=== PATIENT | female | born 1980 | race Caucasian/White ===

== ENCOUNTER 2017-04-06 07:24 | Day surgery (SDC) | payer OTHER ==
[~2017-04-06] VITALS: Ht 157.5 cm; Wt 118.7 kg
[~2017-04-06 07:24] MED LIST: ALBU18HF INH; BUPR150T8 PO; CHOL500050 PO; CeFAZolin Inj 2 GM in IV Premix 1 EACH IV ONE; FLUT10.62 IH; FLUT16SP NS; HYDR-4003 PO; INDO25CA PO; Lactated Ringer's 1,000 ML IV SCH; MULT-1018 PO; NAPR375T4 PO
[2017-04-06] MEDS ORDERED: Ketamine 10 mg/mL 20 mL Inj ONE (07:25)
[2017-04-06] MEDS ORDERED: Propofol 10,000 mCg/mL 20 mL Inj ONE (07:25)
[2017-04-06] MEDS ORDERED: OMEP20CA11 PO (07:56)
[2017-04-06 08:02] VITALS: BP 119/76; PULSE 67; RESP 16; O2SAT 97
--- NOTE | 2017-04-06 08:03 | PCM.HPANE ---
Patient Data Surgeon Admitting Provider: Attending Provider:Jadyn Lee DPM Primary Care Physician:Rosy Sargent PA-C Other Provider:Leelee Lugoingham Anesthesia Reason for Visit Lipoma Of Left Foot, Left Foot Pain Ht/WT & BMI Height (Feet): 5 Height (Inches): 2 Weight (Kilograms): 119.20 Body Mass Index 48.00 Allergies Coded Allergies: latex (Verified Allergy, Severe, ITCHING, 03/27/14) TAPE (Verified Allergy, Intermediate, 04/06/17) iodine (Verified Allergy, Unknown, UNKNOWN (INJECTABLE), 03/27/14) meperidine (Verified Allergy, Unknown, UNKNOWN, 03/27/14) Past Anesthesia History Anesthesia History: Positive for:: Anesthesia Reactions (REACTION TO DEMEROL; pt doesn't remember), Denies:: Malignant Hyperthermia Diabetes History Hx Diabetes?: No MRSA MRSA: No Medications Reported Medications Omeprazole 20 Mg Capsule.dr20 Mg PO DAILY Ref 0 04/06/17 Bupropion ER (Wellbutrin SR)150 Mg Tablet.er150 Mg PO BID Ref 0 04/05/17 Cholecalciferol (Vitamin D3) (Vitamin D3)50,000 Unit Washgpo10,000 Unit PO DAILY 04/05/17 Albuterol Sulfate (Ventolin HFA Inhaler)200 Puff/18 Gm Inhaler2 Puff INH Q4 PRN For Wheezing #1 INHALER Ref 0 04/05/17 Naproxen 375 Mg Tablet.dr375 Mg PO BID PRN For Pain Ref 0 04/05/17 Multivitamin (Multi Vitamin Daily)1 Each Tablet1 Each PO DAILY 30 Days Ref 0 04/05/17 Indomethacin 25 Mg Hzfkulr30 Mg PO TID Ref 0 04/05/17 Hydrocodone-Acetaminophen 5-325 mg 1 Each Tablet1 Tablet PO Q4H PRN For Pain Ref 0 04/05/17 Fluticasone Propionate (Fluticasone Propionate Nasal)16 Gm [place].susp2 [place] NS BID #16 GM Ref 0 04/05/17 Fluticasone Propionate (Flovent HFA 44 mcg)10.6 Gm Aer.w.adap1 Puff IH BID # 10.6 GM Ref 0 04/05/17 Discontinued Reported Medications Bupropion ER (Wellbutrin SR)150 Mg Tablet.er450 Mg PO DAILY 30 Days Ref 0 03/27/14 Omeprazole 40 Mg Capsule.dr40 Mg PO DAILY 30 Days Ref 0 03/27/14 Naproxen 375 Mg Ewagvh447 Mg PO BID PRN For Pain Ref 0 03/27/14 Multivitamin (Daily Multiple Vitamin)1 Each Tablet1 Each PO DAILY 03/27/14 Albuterol Sulfate (Ventolin HFA Inhaler)200 Puff/18 Gm Inhaler1-2 Puff INH Q 4- 6HRS PRN PRN For Wheezing #1 INHALER Ref 0 03/27/14 Fluticasone Propionate (Flovent HFA 110 mcg)12 Gm Aer.w.adap2 Puffs IH BID #12 GM Ref 0 03/27/14 Fluticasone Propionate (Flonase Nasal)16 Gm [place].susp1 [place] NS BID #16 GM Ref 0 03/27/14 Fluconazole (Diflucan)150 Mg Biprmo729 Mg PO ONCE #1 TABLET Ref 0 03/27/14 Cholecalciferol (Vitamin D3) (Vitamin D3)50,000 Unit Fchvqly11,000 Unit PO WKLY 03/27/14 Cholecalciferol (Vitamin D3) (Vitamin D3)2,000 Unit Tablet2,000 Unit PO DAILY 03/27/14 History History of ENT Problems?: Yes HEENT History: Positive for:: Sinus Problem (ENVIRONMENTAL ALLERGIES) Denture Type: None Teeth Condition: Within Normal Limits Hx of Heart Problems?: No Cardiovascular History: Denies:: Cardiac Surgery Chest Pain Congestive Heart Failure Edema Heart Murmur Hypertension Irregular Heartbeat Pacemaker Thrombophlebitis Hx of Respiratory Problem?: Yes Respiratory History: Positive for:: Asthma (well controlled) COPD (RECENT COLD/SORE THROAT) Pneumonia Use of C-PAP Machine Use of Inhalers / NEBS Denies:: Chest Surgery Dyspnea Emphysema Hemoptysis Tuberculosis Hx Neurologic Problems?: Yes Neurological History: Positive for:: Headaches Hx of GI Problems?: Yes Hx of Problems?: No Female Hx: Denies:: Currently Problems with Breasts? Skin History: Positive for:: History Skin Disorders? (S/P EXC LESION UNDERARM HX ECZEMA) Denies:: Pressure Ulcers Hx Musculoskeletal Problems?: Yes Musculoskeletal History: Positive for:: Back Injury (C/OF NECK & BACK PAIN) Musculoskeletal Trauma (left foot lipoma, plantar fascitis ) Denies:: Joint Replacement Hx of Psycho/Social Problems?: Yes Psycho Social History: Positive for:: Anxiety Hx Depression Denies:: Bipolar Disorder Hx Surgeries?: Yes (C/S X2,BROWN,EXC UNDERARM LESION) Hx Any Other Health Problems?: Yes Other History: Positive for:: Hospitalization Denies:: Cancer Endocrine Disease Thyroid Disease History Blood Transfusions: Denies:: Blood Transfusions (speak to pt if blood needed to see if pt will accept) Hx Diabetes: No Hx Alcohol Use: YesAlcoholic Drinks Per Day: socialHx Substance Use: No Smoking Status: Former Smoker Have You Smoked inLast 12 mo: No Stop/Bang P-Blood Pressure: treated: No B- Body Mass Index > 35 kg/m2: Yes A- Age over 50: No N- Neck Large Circumference: Yes G- Gender Male: No SUSHILA Risk Assessment: Low Risk, <3 Yes Risk Assessment Category Category 1A: Patient has history of documented sleep apnea, and HAS NOT received any narcotic, sedative or anesthesia administration during this stay. Category 1B: Patient has history of documented sleep apnea, and HAS received any narcotic , sedative or anesthesia administration during this stay Category 2: Patient has SUSPECTED Obstructive Sleep Apnea, and HAS received any narcotic , sedative or anesthesia administration during this stay. Category 3: Patient has SUSPECTED Obstructive Sleep Apnea and HAS NOT received narcotic, sedative or anesthesia administration during this stay. Category 4: Outpatient in Procedural Areas with known sleep apnea or who screen positive for High Risk via the STOP/BANG questionnaire. Exam Exam General Appearance: Alert HEENT/AIRWAY: MP 2 Lungs: Clear to Auscultation Heart: Exam Unremarkable Plan Impression Patient chart reviewed, patient interviewed and anesthestic plan with risks, benefits, and alternatives discussed, and informed consent obtained. ASA Physical Status: ASA2 Mod Systemic Disease Anesthetic Plan: MAC Bene/Risks/Altern/Consents: Yes HP Complete Prior to Induction: Yes Rubio Barrera MD Apr 06, 2017 08:03
[2017-04-06] MEDS ORDERED: Lidocaine 1%/Epi 1:100,000 30 mL MDV INFILTRATE ONE (09:58)
[2017-04-06] MEDS ORDERED: Dexamethasone 4 mg/mL Inj IV ONE (10:18)
[2017-04-06] MEDS ORDERED: Lactated Ringer's 500 ML IV PRN (10:27)
[2017-04-06] MEDS ORDERED: Lactated Ringer's 1,000 ML IV SCH (10:27)
[2017-04-06] MEDS ORDERED: EPHEDrine Sulfate 50 mg/mL Inj IVPUSH PRN (10:30)
[2017-04-06] MEDS ORDERED: Ondansetron 2 mg/mL 2 mL Inj IVPUSH PRN (10:30)
[2017-04-06] MEDS ORDERED: Phenylephrine 10,000 mCg/mL Inj IVPUSH PRN (10:30)
[2017-04-06] MEDS ORDERED: MetoCLOpramide 5 mg/mL 2 mL Inj IVPUSH PRN (10:30)
[2017-04-06] MEDS ORDERED: HYDROmorphone 1 mg/mL Inj IVPUSH PRN (10:30)
[2017-04-06] MEDS ORDERED: Dexamethasone 4 mg/mL Inj IVPUSH PRN (10:30)
[2017-04-06 10:40] VITALS: BP 110/66; PULSE 60; RESP 14; O2SAT 95
[2017-04-06] MEDS ORDERED: oxyCODONE-Acetamin 5-325 mg Tablet PO PRN (10:40)
--- NOTE | 2017-04-06 10:45 | PCM.PODPO ---
Podiatry Operative Report Date of Service: Apr 06, 2017 Date of Service Apr 06, 2017 Pre Operative Diagnosis Left foot lipoma, plantar fasciosis Post Operative Diagnosis Left foot lipoma, plantar fasciosis Procedure Left foot lipoma excision, partial plantar fascial release Surgeon Surgeon: Jadyn Lee DPM Assistants: None Indication for Procedure Pain, prominent fatty tissue, inflammation, thickening of plantar fascia. Findings Significant septal constriction at the origin of the abductor hallucis muscle belly, thick and fascia, well-defined lipoma. Details of Procedure The patient was identified in the preoperative holding area. She was brought back to the operating room and placed on the operating table in supine position with the left leg elevated. The timeout protocol was completed and the patient' s left foot anesthetized with lidocaine 1% with epinephrine, upon initiation of IV sedation. The left foot was prepped and draped in usual aseptic manner. A medial heel incision was made overlying the palpated lipomatous prominence. The incision was deepened bluntly and an Allis clamp used to remove fatty tissue from the area. Considerable pressure was found within the compartment. Septal constriction was found at the origin of the abductor hallucis muscle belly. This constriction was resected and the muscle belly relaxed immediately. The central plantar fascial band was partially released. This yielded release of contracture previously causing pain on palpation. There is minimal bleeding. Cautery was used as needed for hemostasis. Thorough irrigation was performed with normal saline. The wound was closed with vertical suturing technique using 3-0 nylon to close in the space created by the absence of the lipoma. Interrupted simple sutures were used to reapproximate skin edges where needed. Dressing consisted of Xeroform, gauze, Kerlix, latex free Bryant wrap. The patient was weaned off of anesthesia and taken to Day Surgery with vital signs stable and the vascular status to the left foot intact Grafts, Implants: None Complications There were no periprocedural complications identified. Condition Stable Anesthetic Administered: MAC Drains: None Catheters: None Output, Estimated Blood Loss: 5 (ml) Blood Admin during surgery: No Surgical Cast or Splint: Post-op Boot Surgical Specimen Removed: No Specimen sent to Pathology: No Post Operative Plan The patient will be partially weightbearing with the use of a cane or walker. She may place full weight on it as tolerated, based on her level of pain. She was cautioned against using too much pain medicine to make it comfortable. Follow-up as scheduled next week. In the meantime she is to keep the operative dressing clean and intact.. She has a prescription for pain medication that we dispensed during her office visit with me. Jadyn Lee DPM Apr 06, 2017 10:45
--- NOTE | 2017-04-06 11:04 | PCM.ANEP1 ---
Post Anesthesia PACU Phase 1 Assessment Vital Signs 95 % p77 temp 36.5 128/59 rr10 Vital Signs Date Time Temp Pulse Resp B/P Pulse Ox O2 Delivery O2 Flow Rate FiO2 04/06/17 08:04 CPAP/BIPAP 04/06/17 08:02 36.4 67 16 119/76 97 Room Air Anesthetic Administered: MAC Level of Alertness: Awake, talking VALENZUELA's with Equal Strength: Yes Pain: No Nausea or Vomiting: No CV Function & Hydration Stable: Yes Airway Device: Oxygen Delivery: Room Air Lungs: Clear to Auscultation Dermatome Level: Full Sensation PACU Phase 2 Assessment Complications: No Follow up Care: No Patient Instructions Provided: N/A Rubio Barrera MD Apr 06, 2017 11:04
[2017-04-06 11:20] VITALS: BP 120/70; PULSE 70; RESP 16; O2SAT 97
== END 2017-04-06 23:59 | disposition home or self-care (01) ==
LOC: SAS 07:24
PROVIDERS: ATTEND Podiatrist
DX: M72.2 Plantar fascial fibromatosis (principal); D17.24 Benign lipomatous neoplasm of skin and subcutaneous tissue of left leg; M79.672 Pain in left foot; K21.9 Gastro-esophageal reflux disease without esophagitis
CPT/HCPCS: 11420; 28008; J0690; J1100; J2250; J7120